=== PATIENT | male | born 1955 | race Caucasian/White ===

== ENCOUNTER 2017-07-03 19:47 | Emergency (ER) | payer OTHER ==
--- NOTE | 2017-07-03 20:14 | EDM.PDOC ---
ED HPI GENERAL MEDICAL PROBLEM - General Chief Complaint: General Stated Complaint: ILLNESS Time Seen by Provider: 07/03/17 20:10 Source of Information: Reports: Patient, Family History Limitations: Reports: No Limitations - History of Present Illness INITIAL COMMENTS - FREE TEXT/NARRATIVE: pt arrived with a history of being off balance and he had fallen prior to arrival here.he states he has had some chest pain. He has been having chest pain on and off for 6 monthes. Onset: Today, Other (pt came to work staggering and had fallen. He was having difficulty thinking and remembering things. ) Duration: Getting Worse Associated Symptoms: Reports: Chest Pain, Nausea/Vomiting - Related Data Allergies Allergy/AdvReac Type Severity Reaction Status Date / Time No Known Allergies Allergy Verified 07/03/17 19:50 Home Meds: Home Meds Losartan/Hydrochlorothiazide [Losartan-HCTZ 50-12.5 MG] 1 tab PO DAILY 07/03/17 [History] Testosterone Cypionate 0.5 ml IM WEEKLY 07/03/17 [History] metFORMIN [Glucophage] 500 mg PO BID 07/03/17 [History] Past Medical History HEENT History: Reports: Impaired Vision Cardiovascular History: Reports: Hypertension Endocrine/Metabolic History: Reports: Diabetes, Type II - Infectious Disease History Infectious Disease History: Reports: Chicken Pox - Past Surgical History HEENT Surgical History: Reports: Tonsillectomy Musculoskeletal Surgical History: Reports: Other (See Below) Other Musculoskeletal Surgeries/Procedures:: hip pinning Social & Family History - Tobacco Use Smoking Status *Q: Never Smoker Second Hand Smoke Exposure: No - Caffeine Use Caffeine Use: Reports: Coffee - Recreational Drug Use Recreational Drug Use: No ED ROS GENERAL - Review of Systems Review Of Systems: See Below Constitutional: Reports: No Symptoms HEENT: Reports: No Symptoms Respiratory: Reports: No Symptoms Cardiovascular: Reports: Other (pt was having chest pain. He has had pain off and on for about 6 monthes. ) GI/Abdominal: Reports: Nausea, Vomiting : Reports: No Symptoms Musculoskeletal: Reports: No Symptoms Skin: Reports: No Symptoms Neurological: Reports: Confusion, Trouble Speaking, Difficulty Walking Hematologic/Lymphatic: Reports: No Symptoms ED EXAM, GENERAL - Physical Exam Exam: See Below Free Text/Narrative:: pt arrived at work sleepy and he was staggering. he was not allowed to see patients.He did talk about chest pain and he seemed quite vague with his answers. . Exam Limited By: No Limitations General Appearance: Alert, Lethargic, Other (pt ws staggering. He was having trouble doing tasks that he would normally have no difficulty with. ) Ears: Normal TMs Nose: Normal Inspection Throat/Mouth: Normal Inspection Head: Atraumatic Neck: Normal Inspection Respiratory/Chest: No Respiratory Distress Cardiovascular: Regular Rate, Rhythm GI/Abdominal: Soft, Non-Tender (Male) Exam: Deferred Rectal (Males) Exam: Deferred Back Exam: Normal Inspection Extremities: Normal Inspection, Other (pt has a laceration on the rt elebow. I did offer to place 2 stitches but the pt just wsnted it dressed. ) Neurological: Alert, Oriented, Normal Cognition, Other ( pt was slightly slurred with his speech. He was slow to respond. etoh could be smelled when he was examined. He finally did say he had drank vodka today and he needed help and that he wanted to go to [place]. ) Psychiatric: Depressed Mood, Other (pt did admit to drinking in order to cope. ) Skin Exam: Warm Course - Vital Signs Last Recorded V/S: Last Vital Signs Temp 35.7 C 07/03/17 22:31 Pulse 67 07/03/17 22:31 Resp 16 07/03/17 22:31 BP 117/49 L 07/03/17 22:31 Pulse Ox 95 07/03/17 22:31 - Orders/Labs/Meds Labs: Laboratory Tests 07/03/17 07/03/17 07/03/17 Range/Units 20:24 20:24 20:24 WBC 5.2 (4.5-11.0) K/uL RBC 5.20 (4.30-5.90) M/uL Hgb 16.1 H (12.0-15.0) g/dL Hct 47.6 (40.0-54.0) % MCV 92 (80-98) fL MCH 31 (27-31) pg MCHC 34 (32-36) % Plt Count 318 (150-400) K/uL Neut % (Auto) 58 (36-66) % Lymph % (Auto) 28 (24-44) % Marshall % (Auto) 10 H (2-6) % Eos % (Auto) 2 (2-4) % Baso % (Auto) 2 H (0-1) % Sodium 141 (140-148) mmol/L Potassium 3.4 L (3.6-5.2) mmol/L Chloride 104 (100-108) mmol/L Carbon Dioxide 28 (21-32) mmol/L Anion Gap 12.4 (5.0-14.0) mmol/L BUN 10 (7-18) mg/dL Creatinine 1.2 (0.8-1.3) mg/dL Est Cr Clr Drug Dosing 68.85 mL/min Estimated GFR (MDRD) > 60 (>60) Glucose 179 H (74-106) mg/dL Calcium 8.8 (8.5-10.1) mg/dL Total Bilirubin 0.4 (0.2-1.0) mg/dL AST 40 H (15-37) U/L ALT 58 (12-78) U/L Alkaline Phosphatase 55 (46-116) U/L Creatine Kinase 181 (39-308) U/L Troponin I < 0.017 (0.000-0.056) ng/mL Total Protein 7.3 (6.4-8.2) g/dL Albumin 3.7 (3.4-5.0) g/dL Globulin 3.6 H (2.3-3.5) g/dL Albumin/Globulin Ratio 1.0 L (1.2-2.2) Urine Color Urine Appearance Urine pH (4.5-8.0) Ur Specific [place] (1.008-1.030) Urine Protein (NEGATIVE) mg/dL Urine Glucose (UA) (NEGATIVE) mg/dL Urine Ketones (NEGATIVE) mg/dL Urine Occult Blood (NEGATIVE) Urine Nitrite (NEGAITVE) Urine Bilirubin (NEGATIVE) Urine Urobilinogen (NORMAL) mg/dL Ur Leukocyte Esterase (NEGATIVE) Urine RBC (0-5) Urine WBC (0-5) Ur Epithelial Cells Amorphous Sediment Urine Bacteria Urine Mucus Urine Opiates Screen (NEGATIVE) Ur Oxycodone Screen (NEGATIVE) Urine Methadone Screen (NEGATIVE) Ur Propoxyphene Screen (NEGATIVE) Ur Barbiturates Screen (NEGATIVE) Ur Tricyclics Screen (NEGATIVE) Ur Phencyclidine Scrn (NEGATIVE) Ur Amphetamine Screen (NEGATIVE) U Methamphetamines Scrn (NEGATIVE) Urine MDMA Screen (NEGATIVE) U Benzodiazepines Scrn (NEGATIVE) U Cocaine Metab Screen (NEGATIVE) U Marijuana (THC) Screen (NEGATIVE) Ethyl Alcohol mg/dL 07/03/17 07/03/17 07/03/17 Range/Units 20:24 21:38 21:38 WBC (4.5-11.0) K/uL RBC (4.30-5.90) M/uL Hgb (12.0-15.0) g/dL Hct (40.0-54.0) % MCV (80-98) fL MCH (27-31) pg MCHC (32-36) % Plt Count (150-400) K/uL Neut % (Auto) (36-66) % Lymph % (Auto) (24-44) % Marshall % (Auto) (2-6) % Eos % (Auto) (2-4) % Baso % (Auto) (0-1) % Sodium (140-148) mmol/L Potassium (3.6-5.2) mmol/L Chloride (100-108) mmol/L Carbon Dioxide (21-32) mmol/L Anion Gap (5.0-14.0) mmol/L BUN (7-18) mg/dL Creatinine (0.8-1.3) mg/dL Est Cr Clr Drug Dosing mL/min Estimated GFR (MDRD) (>60) Glucose (74-106) mg/dL Calcium (8.5-10.1) mg/dL Total Bilirubin (0.2-1.0) mg/dL AST (15-37) U/L ALT (12-78) U/L Alkaline Phosphatase (46-116) U/L Creatine Kinase (39-308) U/L Troponin I (0.000-0.056) ng/mL Total Protein (6.4-8.2) g/dL Albumin (3.4-5.0) g/dL Globulin (2.3-3.5) g/dL Albumin/Globulin Ratio (1.2-2.2) Urine Color Yellow Urine Appearance Clear Urine pH 7.0 (4.5-8.0) Ur Specific [place] 1.005 L (1.008-1.030) Urine Protein Negative (NEGATIVE) mg/dL Urine Glucose (UA) 100 H (NEGATIVE) mg/dL Urine Ketones 15 H (NEGATIVE) mg/dL Urine Occult Blood Negative (NEGATIVE) Urine Nitrite Negative (NEGAITVE) Urine Bilirubin Negative (NEGATIVE) Urine Urobilinogen Normal (NORMAL) mg/dL Ur Leukocyte Esterase Negative (NEGATIVE) Urine RBC Not seen (0-5) Urine WBC Not seen (0-5) Ur Epithelial Cells Rare Amorphous Sediment Not seen Urine Bacteria Not seen Urine Mucus Not seen Urine Opiates Screen Negative (NEGATIVE) Ur Oxycodone Screen Negative (NEGATIVE) Urine Methadone Screen Negative (NEGATIVE) Ur Propoxyphene Screen Negative (NEGATIVE) Ur Barbiturates Screen Negative (NEGATIVE) Ur Tricyclics Screen Negative (NEGATIVE) Ur Phencyclidine Scrn Negative (NEGATIVE) Ur Amphetamine Screen Negative (NEGATIVE) U Methamphetamines Scrn Negative (NEGATIVE) Urine MDMA Screen Negative (NEGATIVE) U Benzodiazepines Scrn Negative (NEGATIVE) U Cocaine Metab Screen Negative (NEGATIVE) U Marijuana (THC) Screen Negative (NEGATIVE) Ethyl Alcohol 222 mg/dL Meds: Medications Discontinued Medications Generic Name Dose Route Start Last Admin Trade Name Freq PRN Reason Stop Dose Admin Sodium Chloride 1,000 mls @ 999 mls/hr 07/03/17 20:45 07/03/17 20:53 Normal Saline IV 999 mls/hr ASDIRECTED [facility] Administration - Re-Assessments/Exams Free Text/Narrative Re-Assessment/Exam: 07/03/17 21:37 pt had a etoh of .222. He had normal cardiac enzymes, his ekg was normal and his cat scan of the head was normal. He did state that he had drank vodka today. He requested to go to [place]. He stated that he needed help. He did not admit to using pain meds. 07/03/17 21:50 pt had a neg drug screen.. 07/03/17 21:51 pt gives a history of going through treatment in 2001. He stated that he comers from a family with many adiction issues. 07/09/17 15:23 Departure - Departure Time of Disposition: 21:50 Disposition: DC/Tfer to [facility] Hosp[facility] Clinical Impression: Acute alcohol intoxication, Atypical chest pain - Discharge Information Referrals: PCP,None [Primary Care Provider] - Forms: ED Department Discharge Care Plan Goals: transfer to [facility] detox. rtc for a cardiolyte stress test to evaluate the chest pain. bacatracin to the injured rt elebow.
[2017-07-03] MEDS ORDERED: Sodium Chloride 0.9% 1,000 ML IV SCH (20:45)
[2017-07-03 22:32] VITALS: BP 117/49
== END 2017-07-03 23:15 ==
LOC: JP.ED 19:47
DX: F10.129 Alcohol abuse with intoxication, unspecified (principal); H54.7 Unspecified visual loss; I10 Essential (primary) hypertension; E11.9 Type 2 diabetes mellitus without complications; Z98.890 Other specified postprocedural states; Y90.7 Blood alcohol level of 200-239 mg/100 ml; Z79.899 Other long term (current) drug therapy; Z79.84 Long term (current) use of oral hypoglycemic drugs
CPT/HCPCS: 36415; 70450; 80053; 80305; 81001; 82550; 84484; 85025; 96360; 99285; G0480; J7040; 93005